=== PATIENT | female | born 1960 | race Caucasian/White ===

== ENCOUNTER 2017-02-24 08:51 | Outpatient (CLI) | payer MEDICARE ==
[2013-07-14 22:43] VITALS: BMI 35.9
[~2017-02-24 08:51] MED LIST: ASPIRIN 81 MG E81 MG PO; CELEXA20 MG PO; HUMALOG MI100 UNITS/ SQ; LANTUS INSULIN10 ML SC; LEVOTHROID150 MCG PO; PLAVIX75 MG PO; PRAVACHOL10 MG PO; PRINIVIL20 MG PO
== END 2017-02-24 09:39 ==
LOC: D.MAMMO 08:51
DX: Z12.31 Encounter for screening mammogram for malignant neoplasm of breast (principal)

== ENCOUNTER → 2017-06-16 07:53 | Outpatient (CLI) | payer MEDICARE ==
[2013-07-14 22:43] VITALS: BMI 35.9
== END | disposition home or self-care (01) ==
LOC: D.CT 07:53
DX: N28.89 Other specified disorders of kidney and ureter (principal); I10 Essential (primary) hypertension; R93.5 Abnormal findings on diagnostic imaging of other abdominal regions, including retroperitoneum

== ENCOUNTER → 2018-02-15 17:16 | Outpatient (CLI) | payer MEDICARE ==
[2013-07-14 22:43] VITALS: BMI 35.9
== END | disposition home or self-care (01) ==
LOC: D.MAMMO 13:30
DX: Z12.31 Encounter for screening mammogram for malignant neoplasm of breast (principal)

== ENCOUNTER 2019-03-07 19:00 | Outpatient (CLI) | payer MEDICARE ==
[2013-07-14 22:43] VITALS: BMI 35.9
== END 2019-03-07 23:59 | disposition home or self-care (01) ==
LOC: D.MAMMO 19:00
PROVIDERS: ATTEND Family Medicine
DX: Z12.31 Encounter for screening mammogram for malignant neoplasm of breast (principal)